=== PATIENT | female | born 1990 | race Caucasian/White ===

== ENCOUNTER 2023-12-26 12:46 | Inpatient (IN) | payer MEDICAID ==
[~2023-12-26] VITALS: Ht 157.5 cm; Wt 50.2 kg
[~2023-12-26 12:46] MED LIST: CARDCAP3 PO; SERT25TA21 PO; ZOLO25TA PO
[2023-12-26 13:36] LABS: HEMATOCRIT 41.3 % (36.0-47.0); MEAN CORPUSCULAR HEMOGLOBIN 31.7 pg (27.0-33.0); MEAN CORPUSCULAR HGB CONC 33.9 g/dl (32.0-36.5); MEAN CORPUSCULAR VOLUME 93.4 fl (80.0-96.0); PLATELET COUNT, AUTOMATED 287 10^3/uL (150-450); RED BLOOD COUNT 4.42 10^6/uL (4.00-5.40); WHITE BLOOD COUNT 5.6 10^3/uL (4.0-10.0)
[2023-12-26 13:59] LABS: AMPHETAMINES LEVEL URINE NEGATIVE (NEGATIVE)
[2023-12-26 14:00] LABS: BARBITURATES URINE NEGATIVE (NEGATIVE); COCAINE METABOLITE URINE NEGATIVE (NEGATIVE)
[2023-12-26 14:02] LABS: BENZODIAZEPINES URINE NEGATIVE (NEGATIVE); METHADONE URINE NEGATIVE (NEGATIVE); OPIATES URINE NEGATIVE (NEGATIVE)
[2023-12-26 14:03] LABS: CANNABINOIDS URINE NEGATIVE (NEGATIVE); PHENCYCLIDINE URINE NEGATIVE (NEGATIVE)
[2023-12-26 14:03] LABS: ETHYL ALCOHOL (ETHANOL) < 0.003 % (0.000-0.010)
[2023-12-26 14:05] LABS: ALBUMIN 3.8 G/DL (3.2-5.2); ALKALINE PHOSPHATASE 65 U/L (46-116); ALT/SGPT 20 U/L (7.0-40); AST/SGOT < 8 U/L (<34); BILIRUBIN,DIRECT 0.1 MG/DL (<0.4); BILIRUBIN,TOTAL 0.2 MG/DL (0.3-1.2); BLOOD UREA NITROGEN 12 MG/DL (9-23); CALCIUM LEVEL 9.3 MG/DL (8.5-10.1); CARBON DIOXIDE LEVEL 28 MMOL/L (20-31); CHLORIDE LEVEL 108 MMOL/L (98-107); CREATININE FOR GFR 0.56 MG/DL (0.55-1.30); GLOMERULAR FILTRATION RATE > 60.0 (>60); GLUCOSE, FASTING 87 MG/DL (60-100); POTASSIUM SERUM 3.8 MMOL/L (3.5-5.1); SALICYLATE LEVEL < 3.0 MG/DL (<30); SODIUM LEVEL 142 MMOL/L (136-145); TOTAL PROTEIN 6.8 G/DL (5.7-8.2)
[2023-12-26 14:33] LABS: THYROID STIMULATING HORMONE 0.622 uIU/ML (0.55-4.78)
[2023-12-26 14:45] LABS: HCG, SERUM QUALITATIVE NEGATIVE (NEGATIVE)
[2023-12-26] MEDS ORDERED: ACETAMINOPHEN 325 MG TAB PO PRN (15:15)
[2023-12-26] MEDS ORDERED: MAALOX 30 ML SUSP *UDC PO PRN (15:15)
[2023-12-26] MEDS ORDERED: MOM 30ML SUSPENSION UDC PO PRN (15:15)
[2023-12-26] MEDS ORDERED: traZODone 50 MG TAB PO PRN (15:15)
[2023-12-26] MEDS ORDERED: diphenhydrAMINE 25MG CAP PO PRN (15:15)
[2023-12-26] MEDS ORDERED: HOME MED LIST COMPLETE! XX SCH (15:45)
[2023-12-26 17:44] VITALS: BP 119/79; TEMP 97.3; O2SAT 99
[2023-12-27 15:21] VITALS: BP 139/82; TEMP 97.7; O2SAT 98
[2023-12-27 18:52] LABS: HIV 1&2 SCREEN NEGATIVE (NEGATIVE)
[2023-12-27 18:59] LABS: HEPATITIS C VIRUS ABY INDEX < 0.02 INDEX (<0.8)
[2023-12-27 20:30] LABS: Trichomonas vaginalis (AMP) NOT DETECTED (NEGATIVE)
[2023-12-27 20:54] LABS: GC DNA AMPLIFICATION NEGATIVE (NEGATIVE)
[2023-12-28 06:16] VITALS: BP 111/56; TEMP 97.4; O2SAT 100
[2023-12-28] MEDS: FLUZONE VACCINE TRIVALENT PF(2024-25) 0.5ML SYRINGE IM.IMMUN ONE (08:08)
[2023-12-28] MEDS: SERTRALINE HCL 50 MG TAB PO SCH (08:08)
[2023-12-28 16:31] VITALS: BP 116/72; TEMP 98; O2SAT 98
[2023-12-29 06:15] VITALS: BP 106/58; TEMP 97; O2SAT 100
[2023-12-29] MEDS: IBUPROFEN 400MG TAB PO PRN (09:04)
[2023-12-29 14:45] VITALS: BP 142/77; TEMP 98.4; O2SAT 97
[2023-12-30 06:14] VITALS: BP 116/61; TEMP 98; O2SAT 98
[2023-12-30 16:54] VITALS: BP 134/76; TEMP 98.7
[2023-12-31 06:10] VITALS: BP 131/73; TEMP 97.2; O2SAT 99
[2023-12-31] MEDS ORDERED: SERT50TA29 PO (08:33)
[2023-12-31] MEDS ORDERED: TRAZ-252 PO (08:33)
== END 2023-12-31 12:50 | disposition home or self-care (01) | DRG 751 ==
LOC: M ED 12:46 → M ED INP 15:12 → M PSY 16:56
PROVIDERS: ADMIT Psychiatry & Neurology Psychiatry; ATTEND Psychiatry & Neurology Psychiatry
DX: F33.9 Major depressive disorder, recurrent, unspecified (principal); R45.851 Suicidal ideations; Z56.0 Unemployment, unspecified; Z59.9 Problem related to housing and economic circumstances, unspecified; Z63.5 Disruption of family by separation and divorce; F17.210 Nicotine dependence, cigarettes, uncomplicated; Z91.018 Allergy to other foods; Z20.2 Contact with and (suspected) exposure to infections with a predominantly sexual mode of transmission